=== PATIENT | male | born 1995 | race African-American/Black ===

== ENCOUNTER 2016-11-16 10:36 | Emergency (ER) | payer MEDICAID, OTHER ==
[~2016-11-16] VITALS: Ht 175.3 cm; Wt 80.0 kg
[2016-11-16] MEDS ORDERED: IPRATROPIUM BROMIDE (0.02%) 0.5MG/2.5ML NEB HHN NR (11:25)
[2016-11-16] MEDS ORDERED: METHYLPREDNISOLONE SOD SUCC 125 MG/2 ML VIAL IV NR (11:25)
[2016-11-16] MEDS ORDERED: ALBUTEROL (0.083%) 2.5MG/3ML NEB HHN NR (11:25)
[2016-11-16 14:56] VITALS: BP 125/85
== END 2016-11-16 15:06 | disposition home or self-care (01) ==
LOC: ER 10:54
DX: J45.901 Unspecified asthma with (acute) exacerbation (principal)
CPT/HCPCS: 71010; 94640; 96374; 99284; J2930; J7611; Z7610